=== PATIENT | male | born 1960 | race Caucasian/White ===

== ENCOUNTER 2024-03-21 15:55 | Outpatient (CLI) | payer MEDICARE, MEDICAID ==
[~2024-03-21] VITALS: Ht 195.6 cm; Wt 113.4 kg
[2024-03-21 16:15] LABS: TOTAL HEMOGLOBIN 16.3 G/dl (14.0-17.9)
[2024-03-21] MEDS: albuterol 2.5 MG/3 ML nebule NEB PRN (16:50)
[2024-03-21 16:55] VITALS: PULSE 95; RESP 14; O2SAT 97
== END 2024-03-21 23:59 | disposition home or self-care (01) ==
LOC: RT 15:55
PROVIDERS: ATTEND Internal Medicine Pulmonary Disease
DX: R94.2 Abnormal results of pulmonary function studies (principal); J44.9 Chronic obstructive pulmonary disease, unspecified
CPT/HCPCS: 85018; 94060; 94727; 94729; 94760; A6590

== ENCOUNTER 2024-04-01 10:57 | Day surgery (SDC) | payer MEDICARE, MEDICAID ==
[2024-04-01] VITALS (8 sets, daily range): BP systolic 94–135; BP diastolic 68–88; PULSE 80–93; RESP 12–19; TEMP 97.4; O2SAT 94–96
[~2024-04-01] VITALS: Ht 165.1 cm; Wt 111.8 kg
[2024-04-01] MEDS ORDERED: POTA-206 PO (11:31)
[2024-04-01] MEDS ORDERED: FLUT1AER INH (11:31)
[2024-04-01] MEDS ORDERED: HYDR50TA65 PO (11:31)
[2024-04-01] MEDS ORDERED: BENZ1TAB78 PO (11:31)
[2024-04-01] MEDS ORDERED: DULO20CA18 PO (11:31)
[2024-04-01] MEDS ORDERED: NITR0.4T48 SL (11:31)
[2024-04-01] MEDS ORDERED: EZET10TA48 PO (11:31)
[2024-04-01] MEDS ORDERED: OMEP40CA21 PO (11:31)
[2024-04-01] MEDS ORDERED: METO-395 PO (11:31)
[2024-04-01] MEDS ORDERED: flonase (11:31)
[2024-04-01] MEDS ORDERED: ATOR40TA72 PO (11:31)
[2024-04-01] MEDS ORDERED: BUME1TAB8 PO (11:31)
[2024-04-01] MEDS ORDERED: iron PO (11:31)
[2024-04-01] MEDS ORDERED: FLO0.4C PO (11:31)
[2024-04-01] MEDS ORDERED: ASPI81TA52 PO (11:31)
[2024-04-01] MEDS ORDERED: LORA10TA7 PO (11:31)
[2024-04-01] MEDS ORDERED: TRAZ-256 PO (11:31)
[2024-04-01] MEDS ORDERED: albuterol sulfate INH (11:31)
[2024-04-01 11:52] LABS: BASOPHILS % (AUTO) 0.5 % (0-1); EOSINOPHILS # (AUTO) 0.1 X10'3 (0-0.9); HEMATOCRIT 46.3 % (42.0-52.0); HEMOGLOBIN 15.8 g/dl (14.0-17.9); LYMPHOCYTES # (AUTO) 1.8 X10'3 (1.1-4.8); LYMPHOCYTES % (AUTO) 23.1 % (21-51); MEAN CORPUSCULAR HEMOGLOBIN 30.2 PG (27.0-31.0); MEAN CORPUSCULAR VOLUME 88.9 FL (78-98); MEAN PLATELET VOLUME 7.2 FL (7.4-10.4); MONOCYTES # (AUTO) 0.9 X10'3 (0-0.9); MONOCYTES % (AUTO) 11.7 % (2-12); NEUTROPHILS % (AUTO) 63.7 % (42-75); PLATELET COUNT 226 X10'3 (140-440); RED BLOOD COUNT 5.21 X10'6 (4.70-6.10); RED CELL DISTRIBUTION WIDTH 14.2 % (11.5-14.5); WHITE BLOOD COUNT 7.9 X10'3 (4.5-11.0)
[2024-04-01] MEDS: diphenhydrAMINE 25mg capsule PO PRN (11:52)
[2024-04-01] MEDS: normal saline 1,000 ML IV SCH (11:52)
[2024-04-01] MEDS: LORazepam 0.5 MG tablet PO PRN (11:52)
[2024-04-01 12:05] LABS: PROTHROMBIN TIME 10.3 SECONDS (9.0-12.0)
[2024-04-01] MEDS ORDERED: LIDOcaine 1% (10mg/ml) 2ml vial ONE (12:14)
[2024-04-01] MEDS ORDERED: verapamil 2.5 mg/ml inj IV ONE (12:14)
[2024-04-01] MEDS ORDERED: midazolam 1 mg/ML 2ml injection ONE ×2 (12:14→13:33)
[2024-04-01] MEDS ORDERED: fentaNYL/PF 50MCG/1 ML 2ML syringe ONE (12:14)
[2024-04-01 12:15] LABS: ALBUMIN 3.9 G/DL (3.4-5.0); ANION GAP 11 (8-16); BLOOD UREA NITROGEN 19 MG/DL (7-18); BUN/CREATININE RATIO 15.1 (10.0-20.0); CALCIUM 9.2 MG/DL (8.5-10.1); CHLORIDE 108 MMOL/L (99-107); CHOLESTEROL 97 MG/DL (0-200); CREATININE 1.26 MG/DL (0.60-1.10); GLUCOSE 116 MG/DL (70-104); HDL CHOLESTEROL 32 MG/DL (35-60); LDL CHOLESTEROL 54 MG/DL (50-100); POTASSIUM 3.8 MMOL/L (3.5-5.1); SODIUM 144 MMOL/L (135-145); TOTAL CARBON DIOXIDE 24.8 MMOL/L (24-32); TRIGLYCERIDES 145 MG/DL (20-135); eCRCL 52 ML/MIN; eGFR 58 ML/MIN
[2024-04-01] MEDS ORDERED: iohexol 350MG/ML 100ml bottle IV ONE ×2 (12:15→13:44)
[2024-04-01] MEDS ORDERED: heparin 1,000unit/ml 10ml vial 10 ML ONE (12:15)
[2024-04-01] MEDS ORDERED: nitroGLYCERIN 500mcg/5mL D5W 5 ML IV ONE (12:19)
[2024-04-01] MEDS ORDERED: LIDOcaine 1% 30ml preserv. free vial ONE (13:30)
== END 2024-04-01 15:56 | disposition home or self-care (01) ==
LOC: SSTAY O 10:57
PROVIDERS: ATTEND Student in an Organized Health Care Education/Training Program
DX: R94.39 Abnormal result of other cardiovascular function study (principal); I25.10 Atherosclerotic heart disease of native coronary artery without angina pectoris; I11.0 Hypertensive heart disease with heart failure; I50.9 Heart failure, unspecified; E78.00 Pure hypercholesterolemia, unspecified; I48.91 Unspecified atrial fibrillation; G47.33 Obstructive sleep apnea (adult) (pediatric); I42.9 Cardiomyopathy, unspecified; Z79.82 Long term (current) use of aspirin; Z79.899 Other long term (current) drug therapy; Z95.1 Presence of aortocoronary bypass graft; Z88.0 Allergy status to penicillin; Z88.1 Allergy status to other antibiotic agents; Z88.5 Allergy status to narcotic agent
CPT/HCPCS: 36415; 76937; 80048; 80061; 85025; 85610; 93005; 93459; 93567; 99152; 99153; A4615; A6258; C1725; C1760; C1894; J1644; J2001; J2250; J3010; J3490; J7030; Q0163; Q9967; Z7610